=== PATIENT | female | born 1960 ===

== ENCOUNTER 2025-03-27 13:40 | Outpatient (AMB) | payer MEDICARE, SELFPAY ==
--- NOTE | 2025-03-27 13:47 | AM.OFFWIN_ITS ---
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 She used Benadryl, baking soda paste and cool compresses. She says that the swelling initially but now has begun to worsen. Multiple welts on arm and upper legs. Very itchy. No fevers or chills. No difficulty breathing swallowing or swelling of lips tongue or throat Review of Systems Const Denies chills, Denies fatigue, Denies fever(s), Denies headache(s) and Denies weakness ENT Denies dizziness and Denies headache(s) Card Denies chest pain, Denies lightheadedness, Denies dyspnea and Denies other (Palpitations) Resp Denies cough, Denies dyspnea, Denies wheezing and Denies other ( shortness of breath) Musc Denies numbness and Denies tingling Skin/Breast Details: See HPI Neuro Denies dizziness, Denies headache(s), Denies numbness, Denies tingling, Denies paresthesias and Denies weakness Psych Denies anxiety and Denies depression Endo Denies fatigue Aller/Immun Denies wheezing Physical Exam Vital Signs: Last Vital Signs Pulse 95 03/27/25 13:49 Resp 15 03/27/25 13:49 BP 100/60 03/27/25 13:49 Pulse Ox 97 03/27/25 13:49 Oxygen Delivery Method Room Air 03/27/25 13:49 BMI result Body Mass Index 26.0 Const General: no acute distress and well developed Nutritional Appearance: well nourished Orientation/consciousness: patient oriented x3 HEENT Other: No facial swelling or swelling of lips tongue or throat Head: Yes normocephalic and Yes atraumatic Eyes General: appearance normal, both eyes and all related structures Pupils: Equal, round and reactive pupils present EOM: EOMs intact bilaterally Resp Effort & Inspection: normal respiratory effort Auscultation: clear to auscultation bilaterally Cardio Rate: regular rate Rhythm: regular rhythm Heart sounds: S1 normal heart sound present, S2 normal heart sound present, no gallops, no murmurs and no rubs Skin Other: Multiple large welts on arms and upper legs Mild excoriations from scratching No pus. No significant tenderness to palpation Neuro General: patient oriented x3 and gait normal Cranial nerves: Yes Equal, round and reactive pupils present Psych Affect: normal affect Assessment & Plan Assessment & Plan (1) Allergic reaction to insect sting: Code(s): T63.481A - Toxic effect of venom of other arthropod, accidental (unintentional), initial encounter Plan: Will give her a prednisone taper and she should continue to use Benadryl Cool compresses She can use hydrocortisone cream OTC for local itch Numerous welts. Significant swelling. No evidence of infection Watch for any swelling of lips tongue or throat or any difficulty swallowing or breathing. Will give her an EpiPen which she can use if these develop Medications: New prednisone 4 tabs daily for 4 days, 3 tabs daily for 2 days, 2 tabs daily for 2 days, 1 tab daily for 2 days PO daily; 28 tabs 0RF 10 days epinephrine (EpiPen 2-Beau) 0.3 mg (0.3 mL) IM Q4H PRN 2 ea 2RF anaphylaxis 30 days Coding Level of Care Code New Pt Level 3 (28642) Diagnoses Allergic reaction to insect sting T63.481A
[2025-03-27 13:49] VITALS: BP 100/60; PULSE 95; RESP 15; O2SAT 97; BMI 26.0
== END 2025-03-27 14:20 | disposition home or self-care (01) ==
PROVIDERS: Visit Provider Family Medicine
DX: T63.481A Toxic effect of venom of other arthropod, accidental (unintentional), initial encounter (principal)

== ENCOUNTER → 2025-03-27 13:40 | Outpatient (BNVA) | payer MEDICARE, SELFPAY | DX: T63.441A Toxic effect of venom of bees, accidental (unintentional), initial encounter (principal); Y92.9 Unspecified place or not applicable | CPT/HCPCS: 99202 ==